=== PATIENT | female | born 1970 | race Caucasian/White ===

== ENCOUNTER 2018-06-08 00:20 | Emergency (ER) | payer OTHER ==
[~2018-06-08] VITALS: Ht 162.6 cm; Wt 92.3 kg
[~2018-06-08 00:20] MED LIST: ALEVE220 M2 OR; AMITRIPTYLIN10 MG PO; AMITRIPTYLIN25 MG PO; AMOXICILLIN875 MG OR; BACTRIM DS1 TAB PO; MECLIZINE25 MG PO; MOTRIN400 MG PO; MOTRIN800 MG/TAB PO; NEXIUM20 MG PO; NEXIUM40 M1 OR; NEXIUM40 M1 PO; NYQUI1 OR; OMEPRAZOLE40 MG PO; PANTOPRAZOLE SO40 MG OR; PHENERGAN25 MG/TAB PO; PREMARIN0.3 MG PO; PREVACID30 M1 PO; PRILOSEC20 MG/CAP; TYLENOL COL1 OR; TYLENOL500 MG OR; ULTRACET 37.5-31 TAB PO; XANAX0.25 MG PO; ZOFRAN ODT4 MG PO; [UNRECOGNIZED DRUG - CODE] OR; [UNRECOGNIZED DRUG - OTHER] OR
[2018-06-08 01:17] LABS: HEMATOCRIT 41.2 % (37.0-47.0); HEMOGLOBIN 13.7 g/dl (12.0-16.0); IMMATURE GRANULOCYTES 0.4 % (0.0-5.0); MEAN CELL VOLUME 88.4 fL CALC (80.0-100.0); MEAN CORPUSCULAR HGB 29.4 pG CALC (26.0-32.0); MEAN CORPUSCULAR HGB CONC 33.3 g/L CALC (32.0-36.0); NEUT# 5.21 thou/uL (2.00-7.15); RED BLOOD COUNT 4.66 mill/uL (4.20-5.60); RED CELL DISTRI WIDTH 13.3 % (11.5-15.5)
[2018-06-08 01:19] LABS: ALBUMIN 4.7 g/dL (3.2-5.0); ALKALINE PHOSPHATASE 79 u/l (38-126); AMYLASE 71 u/l (30-110); BILIRUBIN, TOTAL 0.4 mg/dL (0.0-1.4); BUN 20 mg/dL (7-17); BUN/CREATININE RATIO 21 (12-20 (CALC)); CARBON DIOXIDE 25 mmol/l (22-30); CHLORIDE 105 mmol/l (95-108); CREATININE 0.9 mg/dL (0.5-1.0); GFR > 60 ML/MIN (>=60 (CALC)); GFR FOR AFR.AMER. > 60 ML/MIN (>=60 (CALC)); LIPASE 69 u/l (23-300); SGOT/AST 31 u/l (14-36); SODIUM 142 mmol/l (137-146); TOTAL PROTEIN 7.7 g/dL (6.3-8.2)
[2018-06-08 01:25] LABS: ANION GAP 15 (6-22 (CALC)); POTASSIUM 3.3 mmol/l (3.5-5.1)
[2018-06-08 01:28] LABS: MYOGLOBIN 39 ng/mL (0 - 62)
[2018-06-08] MEDS ORDERED: TORADOL PO (01:54)
[2018-06-08 02:24] VITALS: BP 130/70
== END 2018-06-08 02:25 | disposition home or self-care (01) | DRG 313 ==
LOC: ED 00:20 → ED-I 00:50 → ED 00:50 → ED-I 01:52 → ED 02:25
PROVIDERS: Family Medicine
DX: R07.89 Other chest pain (principal); F17.200 Nicotine dependence, unspecified, uncomplicated; K21.9 Gastro-esophageal reflux disease without esophagitis

== ENCOUNTER 2020-01-05 13:22 | Emergency (ER) | payer OTHER ==
[~2020-01-05] VITALS: Ht 162.6 cm; Wt 90.0 kg
[~2020-01-05 13:22] MED LIST changes: +TORADOL PO
[2020-01-05] MEDS ORDERED: CLOPIDOGREL75 MG PO (13:40)
[2020-01-05] MEDS ORDERED: ALPRAZOLAM0.25 MG PO (13:41)
[2020-01-05] MEDS ORDERED: PRAVASTATIN SOD20 MG PO (13:41)
[2020-01-05] MEDS ORDERED: LORTAB 5/3255 MG PO (14:58)
[2020-01-05 15:00] VITALS: BP 146/79
== END 2020-01-05 15:00 | disposition home or self-care (01) | DRG 605 ==
LOC: ED 13:22
DX: S90.111A Contusion of right great toe without damage to nail, initial encounter (principal); K21.9 Gastro-esophageal reflux disease without esophagitis; I25.2 Old myocardial infarction; W20.8XXA Other cause of strike by thrown, projected or falling object, initial encounter; Y92.009 Unspecified place in unspecified non-institutional (private) residence as the place of occurrence of the external cause; Z95.5 Presence of coronary angioplasty implant and graft